=== PATIENT | female | born 1975 | race Caucasian/White ===

== ENCOUNTER 2021-01-01 04:18 | Emergency (ER) | payer BC, OTHER ==
--- NOTE | 2021-01-01 04:55 | ED Physician Documentation ---
History of Present Illness - Stated complaint Stated Complaint: BACK/NECK PAIN/FATIGUE - Chief complaint Chief Complaint: Cardiac - History obtained from History obtained from: Patient - History of Present Illness Timing: How many days ago (1-2) Pain level now: 3 Radiates to: bilateral shoulders Improved by: no ameliorating factors Worsened by: inspiration (pleuritic) Associated symptoms: fatigue - Additonal information Additional information: patient c/o chest pain across upper anterior chest that radiates to her neck and both shoulders with a sensation of arm tightness (per patient) bilaterally. the chest pain has a strong pleuritic component. she also notes fatigue. Symptoms started 1-2 days ago without specific inciting event. Significant PMHx includes WV with stent approximately ten years ago with subsequent WV that was treated pharamacologically (she says the cause was clotting of the stent but that the stent wasnt replaced nor new stents placed). Also h/o aortic stenosis treated with tissue valve which was replaced with a mechanical valve approximately 5 years later. She also has been diagnosed with dilated aortic root/ascending aorta; she does not recall when the most recent study was performed but she says last measurement was 3.7 cm. She is COVID vaccinated. Review of Systems Constitutional: reports: Fatigue. denies: Fever, Chills Cardiac: reports: Chest pain / pressure. denies: Palpitations, Pedal edema, Calf pain Respiratory: reports: Reviewed and negative GI: reports: Reviewed and negative : denies: Now EGA Musculoskeletal: reports: Reviewed and negative Neurologic: reports: Reviewed and negative PD PAST MEDICAL HISTORY - Past Medical History Past Medical History: Yes Cardiovascular: WV, Valve disorder - Past Surgical History Past Surgical History: Yes Cardiovascular: Coronary stent, Valve replacement - Present Medications Home Medications: Ambulatory Orders Medication Instructions Recorded Confirmed Aspirin [Madelia Aspirin] 81 mg PO QID 01/01/21 01/01/21 DULoxetine [Cymbalta] 30 mg PO QID 01/01/21 01/01/21 Magnesium Oxide [Magnesium] 400 mg PO QID 01/01/21 01/01/21 Metoprolol Succinate [Toprol Xl] 12.5 mg PO QPM 01/01/21 01/01/21 Ondansetron Odt [Zofran Odt] 4 mg PO PRN 01/01/21 Pantoprazole [Protonix] 40 mg PO QID 01/01/21 01/01/21 Pramipexole [Mirapex] 0.5 mg PO QID 01/01/21 01/01/21 Rosuvastatin Calcium [Crestor] 20 mg PO QID 01/01/21 01/01/21 SUMAtriptan [Imitrex] 25 mg PO PRN PRN 01/01/21 01/01/21 Warfarin [Coumadin] 5 - 7.5 mg PO QID 01/01/21 01/01/21 lamoTRIgine [Lamictal] 150 mg PO QPM 01/01/21 01/01/21 - Allergies Allergies/Adverse Reactions: Allergies Allergy/AdvReac Type Severity Reaction Status Date / Time No Known Drug Allergies Allergy Verified 01/01/21 04:32 PD ED PE NORMAL - Vitals Vital signs reviewed: Yes - General General: Alert and oriented X 3, No acute distress, Well developed/nourished - Neck Neck: No JVD - Cardiac Cardiac: No murmur - Respiratory Respiratory: No respiratory distress, Clear bilaterally - Abdomen Abdomen: Soft, Non tender - Extremities Extremities: No edema PD ED PE EXPANDED - Cardiac Cardiac: Regular Rate, Regular Rhythm, Other (click c/w mechanical valve) Results - Vitals Vitals: Oxygen O2 Source Room air - EKG (time done) No standard instances Rate: Rate (enter#) (86) Rhythm: NSR [place]: Normal Intervals: Normal [place], Other (borderline IVCD) QRS: Poor R wave progression Ischemia: Normal ST segments, Non specific changes (flat/inverted T V6, I, aVL) - Labs Labs: Laboratory Tests 01/01/21 01/01/21 01/01/21 05:53 06:36 06:36 WBC 8.4 RBC 4.12 L Hgb 12.8 Hct 38.1 MCV 92.5 MCH 31.1 H MCHC 33.6 RDW 12.9 Plt Count 257 MPV 10.2 Neut # (Auto) 6.4 Lymph # (Auto) 1.5 Bartholomew # (Auto) 0.5 Eos # (Auto) 0.0 Baso # (Auto) 0.0 Absolute Nucleated RBC 0.00 Nucleated RBC % 0.0 PT 42.2 H INR 3.8 H APTT 44.1 H Sodium Potassium Chloride Carbon Dioxide Anion Gap BUN Creatinine Estimated GFR (MDRD) Glucose Calcium Troponin I High Sens Nasal Adenovirus (PCR) NOT DETECTED Nasal B. parapertussis DNA (PCR) NOT DETECTED Nasal Coronavir 229E PCR NOT DETECTED Nasal Coronavir HKU1 PCR NOT DETECTED Nasal Coronavir NL63 PCR NOT DETECTED Nasal Coronavir OC43 PCR NOT DETECTED Nasal Enterovir/Rhinovir PCR NOT DETECTED Nasal Influenza B PCR NOT DETECTED Nasal Influenza A PCR NOT DETECTED Nasal Parainfluen 1 PCR NOT DETECTED Nasal Parainfluen 2 PCR NOT DETECTED Nasal Parainfluen 3 PCR NOT DETECTED Nasal Parainfluen 4 PCR NOT DETECTED Nasal RSV (PCR) NOT DETECTED Nasal B.pertussis DNA PCR NOT DETECTED Nasal C.pneumoniae (PCR) NOT DETECTED Philippe Human Metapneumo PCR NOT DETECTED Nasal M.pneumoniae (PCR) NOT DETECTED Nasal SARS-CoV-2 (PCR) NOT DETECTED 01/01/21 01/01/21 06:36 06:36 WBC RBC Hgb Hct MCV MCH MCHC RDW Plt Count MPV Neut # (Auto) Lymph # (Auto) Bartholomew # (Auto) Eos # (Auto) Baso # (Auto) Absolute Nucleated RBC Nucleated RBC % PT INR APTT Sodium 139 Potassium 4.2 Chloride 106 Carbon Dioxide 25 Anion Gap 8.0 BUN 13 Creatinine 0.6 Estimated GFR (MDRD) 108 Glucose 112 H Calcium 9.1 Troponin I High Sens 7.2 Nasal Adenovirus (PCR) Nasal B. parapertussis DNA (PCR) Nasal Coronavir 229E PCR Nasal Coronavir HKU1 PCR Nasal Coronavir NL63 PCR Nasal Coronavir OC43 PCR Nasal Enterovir/Rhinovir PCR Nasal Influenza B PCR Nasal Influenza A PCR Nasal Parainfluen 1 PCR Nasal Parainfluen 2 PCR Nasal Parainfluen 3 PCR Nasal Parainfluen 4 PCR Nasal RSV (PCR) Nasal B.pertussis DNA PCR Nasal C.pneumoniae (PCR) Philippe Human Metapneumo PCR Nasal M.pneumoniae (PCR) Nasal SARS-CoV-2 (PCR) - Rads (name of study) CT chest angio Radiology: Prelim report reviewed, See rad report PD MEDICAL DECISION MAKING - ED course Complexity details: reviewed results, re-evaluated patient, considered differential, d/w patient ED course: No emergent concerning findings on EKG, reassuring blood tests including normal high-sensitivity troponin. INR is 3.8. No evidence of PE nor other emergent findings on CT chest angio. Borderline dilatation of ascending aorta is noted with measurement of 4.1 cm. As noted in HPI, patient is aware of this diagnosis, cannot recall timing of her most recent study but she says it had been 3.7 cm. On reevaluation, she is asleep, easily awakens to voice, reports resolution of her symptoms (without intervention in ED). Results d/w patient and she is comfortable with d/c home. She is encouraged to return immediately if symptoms return or worsen, and to follow up with her primary care provider even if symptoms do not recur. Departure - Departure Disposition: 01 Home, Self Care Clinical Impression: Chest pain Qualifiers: Chest pain type: chest pain on breathing Qualified Code(s): R07.1 - Chest pain on breathing Condition: Good Instructions: ED Chest Pain Atypical Unkn Cause, ED Chest Pain Pleurisy Follow-Up: MALISSA MCCABE MD [Primary Care Provider] - Discharge Date/Time: 01/01/21 09:46
[2021-01-01] MEDS ORDERED: IOVERSOL 320 100 ML VIAL IVP ONE ×2 (06:02→07:27)
[2021-01-01 06:43] LABS: BASOPHILS % (AUTO) 0.5 %; EOSINOPHILS % (AUTO) 0.1 %; HCT - HEMATOCRIT 38.1 % (37.0-47.0); HGB - HEMOGLOBIN 12.8 g/dL (12.0-16.0); LYMPHOCYTES # (AUTO) 1.5 10^3/uL (1.5-3.5); LYMPHOCYTES % (AUTO) 17.5 %; MEAN CORPUSCULAR HEMOGLOBIN 31.1 pg (27.0-31.0); MEAN CORPUSCULAR HGB CONC 33.6 g/dL (32.0-36.0); MEAN CORPUSCULAR VOLUME 92.5 fL (81.0-99.0); MEAN PLATELET VOLUME 10.2 fL (7.9-10.8); MONOCYTES # (AUTO) 0.5 10^3/uL (0.0-1.0); MONOCYTES % (AUTO) 5.7 %; NEUTROPHILS # (AUTO) 6.4 10^3/uL (1.5-6.6); NEUTROPHILS % (AUTO) 75.8 %; PLT - PLATELET COUNT 257 10^3/uL (130-450); RED BLOOD COUNT 4.12 10^6/uL (4.20-5.40); RED CELL DISTRIBUTION WIDTH 12.9 % (12.0-15.0); WHITE BLOOD COUNT 8.4 x10^3/uL (4.8-10.8)
[2021-01-01 06:50] LABS: INR 3.8 (0.8-1.2); PT - PROTHROMBIN TIME 42.2 secs (9.9-12.6)
[2021-01-01 06:52] LABS: CALCIUM 9.1 mg/dL (8.5-10.3); CREATININE 0.6 mg/dL (0.4-1.0); POTASSIUM 4.2 mmol/L (3.5-5.0)
[2021-01-01 06:57] LABS: PARTIAL THROMBOPLASTIN TIME 44.1 secs (24.9-33.3)
[2021-01-01 07:10] LABS: B. PARAPERTUSSIS- RESP PCR PAN NOT DETECTED; B. PERTUSSIS- RESP PCR PANEL NOT DETECTED; C. PNEUMONIAE- RESP PCR PANEL NOT DETECTED; CORONAVIRUS 229E-RESP PCR NOT DETECTED; CORONAVIRUS HKU1-RESP PCR NOT DETECTED; CORONAVIRUS NL63-RESP PCR NOT DETECTED; CORONAVIRUS OC43-RESP PCR NOT DETECTED; HUMAN METAPNEUMOVIRUS NOT DETECTED; INFLUENZA A- RESP PCR PANEL NOT DETECTED; INFLUENZA B - RESP PCR PANEL NOT DETECTED; M. PNEUMONIAE- RESP PCR PANEL NOT DETECTED; PARAINFLUENZA VIRUS 1 NOT DETECTED; PARAINFLUENZA VIRUS 2 NOT DETECTED; PARAINFLUENZA VIRUS 3 NOT DETECTED; PARAINFLUENZA VIRUS 4 NOT DETECTED; RHINOVIRUS/ENTEROVIRUS NOT DETECTED; RSV- RESP PCR PANEL NOT DETECTED; SARS-CoV-2 -RESP PCR PANEL NOT DETECTED
[2021-01-01 08:04] VITALS: BP 103/64
--- NOTE | 2021-01-01 08:11 | CT Report ---
PROCEDURE: ANGIO CHEST W/WO INDICATIONS: pleuritic chest pain, h/o MT, AVR, aortic aneurysm CONTRAST: IV CONTRAST: Optiray 320 ml: 80 PO CONTRAST: *NO PO CONTRAST TECHNIQUE: After the administration of intravenous contrast, 2 mm axial images were acquired from the pulmonary apices to the posterior costophrenic angles during the arterial phase. In addition, 1 mm lung kernel and 5 mm soft tissue kernel reconstructions were performed. 3-dimensional coronal oblique maximum int ensity projection (MIP) reformats, 8 mm axial MIP, and 5 mm coronal and sagittal MPR reformats were t hen performed through the thorax. For radiation dose reduction, the following was used: automated exp osure control, adjustment of mA and/or kV according to patient size. COMPARISON: None FINDINGS: Image quality: Excellent. Pulmonary arteries: Pulmonary arteries are normal in size, and demonstrate no intraluminal filling d efects to suggest central pulmonary embolism. Lungs and pleura: Lungs are clear. No pleural effusions or pneumothorax. Central and peripheral ai rways are patent. Mediastinum: Mild cardiomegaly. Aortic valve prosthesis. No mediastinal or hilar adenopathy. Borderli ne aneurysmal dilatation of the ascending aorta, measuring 4.1 cm. 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 This is a normal anatomic variant. Esopha denae is normal in caliber, without hiatal hernia. Bones and chest wall: No suspicious bony lesions. Ribs and thoracic spine appear intact throughout. No axillary or supraclavicular adenopathy. The thyroid is normal in size and there are no incident al findings. Abdomen: Visualized upper abdominal solid organs appear normal in the early arterial phase of enhanc ement. IMPRESSION: 1. No evidence acute pulmonary emboli. 2. No evidence acute pulmonary process. 3. Aortic valve prosthesis, mild aneurysmal dilatation of the ascending aorta, measuring 4.1 cm. 4. 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 CLINICAL RECOMMENDATION STATEMENTS: In patients <35 years with an ITN detected on CT, MRI, or extrathyroidal ultrasound, the Committee re commends further evaluation with dedicated thyroid ultrasound if the nodule is "e1 cm and has no susp icious imaging features, and if the patient has normal life expectancy. In patients "e35 years with an ITN detected on CT, MRI, or extrathyroidal ultrasound, the Committee r ecommends further evaluation with dedicated thyroid ultrasound if the nodule is "e1.5 cm and has no s uspicious imaging features, and if the patient has normal life expectancy. (ACR, 2014) Reviewed by: Juan Carlos Sanchez MD on 01/01/2021 8:09 AM PDT Approved by: Juan Carlos Sanchez MD on 01/01/2021 8:09 AM PDT Station ID: [id number]
== END 2021-01-01 09:46 | disposition home or self-care (01) ==
LOC: ED 04:18
DX: R07.1 Chest pain on breathing (principal); I25.2 Old myocardial infarction; I77.810 Thoracic aortic ectasia; Z79.01 Long term (current) use of anticoagulants; Z95.2 Presence of prosthetic heart valve; Z95.5 Presence of coronary angioplasty implant and graft; Z20.822 Contact with and (suspected) exposure to COVID-19
CPT/HCPCS: 0202U; 36415; 71275; 80048; 84484; 85025; 85610; 85730; 93005; 99284; Q9967